=== PATIENT | female | born 1985 | race Caucasian/White ===

== ENCOUNTER 2017-05-09 15:27 | Emergency (ER) | payer OTHER ==
[~2017-05-09] VITALS: Ht 170.2 cm; Wt 99.8 kg
[~2017-05-09 15:27] MED LIST: IBUPROFEN800 MG PO; MESTINON60 MG PO; PENICILLIN V P500 MG PO; ZOLOFT50 MG PO
[2017-05-09] MEDS ORDERED: HYDROXYCHLOROQ200 MG PO (15:46)
[2017-05-09] MEDS ORDERED: PYRIDOSTIGMINE60 MG PO (15:46)
[2017-05-09] MEDS ORDERED: SERTRALINE HCL100 MG PO (15:47)
[2017-05-09] MEDS ORDERED: AZATHIOPRINE50 MG PO (15:47)
[2017-05-09] MEDS ORDERED: PREDNISONE20 MG PO (15:48)
== END 2017-05-09 20:05 | disposition home or self-care (01) ==
LOC: ED 15:27
DX: J20.9 Acute bronchitis, unspecified (principal); F17.200 Nicotine dependence, unspecified, uncomplicated; M32.9 Systemic lupus erythematosus, unspecified; G70.00 Myasthenia gravis without (acute) exacerbation; M35.00 Sjogren syndrome, unspecified; Z79.899 Other long term (current) drug therapy
CPT/HCPCS: 71020; 80053; 85025; 96361; 96374; 99283; J2930; J7030

== ENCOUNTER 2017-09-04 01:25 | Emergency (ER) | payer OTHER ==
[~2017-09-04] VITALS: Ht 170.2 cm; Wt 99.8 kg
[~2017-09-04 01:25] MED LIST changes: +AZATHIOPRINE50 MG PO; +HYDROXYCHLOROQ200 MG PO; +PREDNISONE20 MG PO; +PYRIDOSTIGMINE60 MG PO; +SERTRALINE HCL100 MG PO
== END 2017-09-04 03:43 | disposition home or self-care (01) ==
LOC: ED 01:25
DX: J98.8 Other specified respiratory disorders (principal); B97.89 Other viral agents as the cause of diseases classified elsewhere; F17.200 Nicotine dependence, unspecified, uncomplicated; Z79.899 Other long term (current) drug therapy; Z79.52 Long term (current) use of systemic steroids
CPT/HCPCS: 71045; 96374; 99283; J2930; J7030